=== PATIENT | female | born 1985 | race Caucasian/White ===

== ENCOUNTER 2017-03-03 14:00 | Inpatient (IN) | payer BC ==
[~2017-03-03] VITALS: Ht 172.7 cm; Wt 110.9 kg
[~2017-03-03 14:00] MED LIST: LEVOTHYROXIN0.025 MG PO; MOTRIN 800800 MG/TAB PO; PERCOCET 325 MG1 TA2 PO; PREDNISONE20 MG PO; TIROSINT75 MC1 PO; ZITHROMAX Z PA250 MG PO
[2017-04-13] VITALS (60 sets, daily range): BP systolic 90–155; BP diastolic 53–103; PULSE 69–107; TEMP 97.3–98.2
[2017-04-13] MEDS ORDERED: TIROSINT100 MC1 PO (07:37)
[2017-04-13] MEDS ORDERED: PRENATAL (07:37)
[2017-04-13 08:46] LABS: BASO % 0.2 % (0.0-2.0); EOS # 0.1 (0.0-0.7); EOS % 0.6 % (0-4.0); GRAN # 8.4 (1.4-6.5); GRAN % 77.8 % (42.2-75.2); HEMATOCRIT 41.5 % (37.0-47.0); HEMOGLOBIN 13.1 g/dl (12.5-16.0); LYMPH # 1.8 (1.2-3.4); LYMPH % 17.1 % (20.0-51.0); MEAN CELL VOLUME 79 fl (80.0-100.0); MEAN CORPUSCULAR HEMOGLOBIN 25 pg (27.0-31.0); MEAN CORPUSCULAR HGB CONC 32 g/dl (33.0-37.0); MEAN PLATELET VOLUME 11.4 fl (7.4-10.4); MONO # 0.4 (0.1-0.6); MONO % 3.9 % (1.7-9.3); PLATELET COUNT 317 K/mm3 (130-400); RED BLOOD COUNT 5.28 M/mm3 (4.10-5.30); WHITE BLOOD COUNT 10.7 K/mm3 (4.8-10.8)
[2017-04-14 02:30] VITALS: BP 118/63; PULSE 91; TEMP 97.6
[2017-04-14 07:26] LABS: BASO # 0.1 (0.0-0.2); BASO % 0.3 % (0.0-2.0); EOS % 0.1 % (0-4.0); GRAN % 85.3 % (42.2-75.2); LYMPH # 1.6 (1.2-3.4); LYMPH % 8.7 % (20.0-51.0); MEAN CELL VOLUME 79 fl (80.0-100.0); MEAN CORPUSCULAR HEMOGLOBIN 25 pg (27.0-31.0); MEAN CORPUSCULAR HGB CONC 31 g/dl (33.0-37.0); MEAN PLATELET VOLUME 11.1 fl (7.4-10.4); MONO % 5.1 % (1.7-9.3); PLATELET COUNT 296 K/mm3 (130-400); RED BLOOD COUNT 4.71 M/mm3 (4.10-5.30); WHITE BLOOD COUNT 18.7 K/mm3 (4.8-10.8)
[2017-04-14 07:31] LABS: HEMOGLOBIN 11.6 g/dl (12.5-16.0)
[2017-04-14 09:19] VITALS: BP 125/76; PULSE 97; TEMP 97.5
[2017-04-14 18:02] VITALS: BP 116/71; PULSE 96; TEMP 97.8
[2017-04-14 20:45] VITALS: BP 117/65; PULSE 86; TEMP 98.1
[2017-04-15 08:35] VITALS: BP 112/84; PULSE 68; TEMP 97.6
[2017-04-15] MEDS ORDERED: IBU600 MG PO (09:24)
[2017-04-15] MEDS ORDERED: PERCOCET 325 MG1 TA2 PO (09:25)
[2017-04-15 16:45] VITALS: BP 118/64; PULSE 89; TEMP 98.9
[2017-04-15 19:15] VITALS: BP 133/68; PULSE 80; TEMP 97.8
[2017-04-16 07:45] VITALS: BP 128/73; PULSE 80; TEMP 98.1
== END 2017-04-16 10:00 | disposition home or self-care (01) | DRG 766 ==
LOC: LDR 04-13 07:02 → OB 04-13 21:00 → LDR 04-17 13:59
PROVIDERS: Obstetrics & Gynecology
PROC: 10D00Z1 Extraction of Products of Conception, Low, Open Approach (ICD-10-PCS; principal; 2017-04-13)
PROC: 3E033VJ Introduction of Other Hormone into Peripheral Vein, Percutaneous Approach (ICD-10-PCS; 2017-04-13)
DX: O13.4 Gestational [pregnancy-induced] hypertension without significant proteinuria, complicating childbirth (principal); O99.284 Endocrine, nutritional and metabolic diseases complicating childbirth; E03.9 Hypothyroidism, unspecified; Z3A.39 39 weeks gestation of pregnancy; Z37.0 Single live birth
CPT/HCPCS: J0690; J1885; J2270; J2370; J2405; J2590; J2795; J7120

== ENCOUNTER 2020-02-12 08:30 | Inpatient (IN) | payer MEDICAID ==
[2020-02-12] VITALS (15 sets, daily range): BP systolic 93–137; BP diastolic 48–84; PULSE 71–98; TEMP 97.7–98.7
[~2020-02-12] VITALS: Ht 172.8 cm; Wt 115.9 kg
[~2020-02-12 08:30] MED LIST changes: -LEVOXYL0.125 MG PO
--- NOTE | 2020-02-12 08:40 | NUR ---
Patient ambulatory to room 220, changed into gown, FHR/TOCO monitors placed. Patient denies any regular contractions/leaking of fluid/vaginal bleeding/decreased movement. Plan of care discussed and questions answered. 0855: IV started in right hand, blood drawn and to lab, LR infusing. Assessment comleted/consents discussed and signed/ packet given. Patient prepped for .
[2020-02-12] MEDS ORDERED: LEVOXYL0.125 MG PO (09:05)
[2020-02-12 09:32] LABS: BASO % 0.2 % (0.0-2.0); EOS # 0.1 (0.0-0.7); EOS % 0.5 % (0-4.0); GRAN # 8.5 (1.4-6.5); GRAN % 77.9 % (42.2-75.2); HEMATOCRIT 37.2 % (37.0-47.0); HEMOGLOBIN 11.5 g/dl (12.5-16.0); LYMPH # 1.7 (1.2-3.4); LYMPH % 15.8 % (20.0-51.0); MEAN CELL VOLUME 76 fl (80.0-100.0); MEAN CORPUSCULAR HEMOGLOBIN 24 pg (27.0-31.0); MEAN CORPUSCULAR HGB CONC 31 g/dl (33.0-37.0); MEAN PLATELET VOLUME 11.7 fl (7.4-10.4); MONO # 0.6 (0.1-0.6); MONO % 5.1 % (1.7-9.3); PLATELET COUNT 323 K/mm3 (130-400); RED BLOOD COUNT 4.88 M/mm3 (4.10-5.30); REDCELL DISTRIBUTION WIDTH-CV 16.6 % (11.5-14.5)
[2020-02-13 00:10] VITALS: BP 141/80; PULSE 79; TEMP 97.6
[2020-02-13 04:50] VITALS: BP 130/77; PULSE 74; TEMP 98
[2020-02-13] MEDS ORDERED: PERCOCET 325 MG1 TA2 PO (08:02)
[2020-02-13] MEDS ORDERED: MOTRIN 800800 MG/TAB PO (08:02)
[2020-02-13 08:28] VITALS: BP 132/88; PULSE 73; TEMP 97.6
--- NOTE | 2020-02-13 09:17 | NUR ---
Initial visit; Parents thanked Fly Winder for offering congratulations and God's blessings for the of their son. Fly Winder thanked family for choosing our hospital.
[2020-02-13 16:55] VITALS: BP 132/84; PULSE 78; TEMP 98
[2020-02-13 20:00] VITALS: BP 124/83; PULSE 72; TEMP 98.8
--- NOTE | 2020-02-13 23:00 | NUR ---
reviewed scheduled Motrin due @ 0130. Pt requests 1 kumarocet now. Agreed on plan of care to hold Motrin until 0200 with baby's next feeding. Reminded Mom to call for motrin sooner if needed.
--- NOTE | 2020-02-14 08:04 | NUR ---
REPORT RECEIVED FROM OFF GOING RN, AROLDO. CARE TAKEN OVER BY THIS RN.
[2020-02-14 09:03] VITALS: BP 129/82; PULSE 82; TEMP 97.5
== END 2020-02-14 11:50 | disposition home or self-care (01) | DRG 787 ==
LOC: OB 08:30
PROVIDERS: ADMIT Obstetrics & Gynecology
PROC: 10D00Z1 Extraction of Products of Conception, Low, Open Approach (ICD-10-PCS; principal; 2020-02-12)
DX: O34.211 Maternal care for low transverse scar from previous cesarean delivery (principal); O10.02 Pre-existing essential hypertension complicating childbirth; Z37.0 Single live birth; O99.284 Endocrine, nutritional and metabolic diseases complicating childbirth; E03.9 Hypothyroidism, unspecified; Z3A.39 39 weeks gestation of pregnancy
CPT/HCPCS: J0690; J1885; J2370; J2405; J2590; J3010; J7120

== ENCOUNTER → 2020-02-12 | Outpatient (CLI) | payer MEDICAID ==
[~2020-02-12] MED LIST changes: +IBU600 MG PO; +LEVOXYL0.125 MG PO; +PRENATAL; +TIROSINT100 MC1 PO
== END ==
LOC: ZCOL.LAB 02-06 11:31
DX: Z20.828 Contact with and (suspected) exposure to other viral communicable diseases (principal)

== ENCOUNTER → 2020-02-27 | Outpatient (CLI) | payer MEDICAID ==
[~2020-02-27] MED LIST changes: +LEVOXYL0.125 MG PO
== END ==
LOC: COL.LAB 09:24
DX: R50.9 Fever, unspecified (principal); Z20.828 Contact with and (suspected) exposure to other viral communicable diseases

== ENCOUNTER → 2023-06-06 | Outpatient (CLI) | payer SELFPAY | LOC: MC.RAD 13:59 | DX: Z12.31 Encounter for screening mammogram for malignant neoplasm of breast (principal) ==